=== PATIENT | male | born 1995 | race African-American/Black ===

== ENCOUNTER 2017-08-10 01:05 | Emergency (ER) | payer SELFPAY ==
--- NOTE | 2017-08-10 01:45 | PDOC ---
History of Present Illness - General Stated Complaint: ABD PAIN Time Seen by Provider: 08/10/17 01:44 History Source: Patient - History of Present Illness Initial Comments: 08/10/17 03:40 22 y.o. male with no PMH who presents to the ED today c/o acute onset of abdominal pain and associated emesis. Pain is sharp, 10/10 B/L LQ and does not radiate with no identifiable triggering or relieving factors. Patient endorse 5 -6 episodes of NBNB emesis. Patient denies any diarrhea/constipation and notes his last BM was earlier today and was normal. Patient's most recent PO intake was at 1 p.m. Patient denies chest pain, shortness of breath, fevers/chills. Past History - Past Medical History Allergies/Adverse Reactions: Allergies Allergy/AdvReac Type Severity Reaction Status Date / Time No Known Drug Allergies Allergy Verified 08/13/17 00:28 shellfish derived Allergy Verified 08/12/17 22:13 Home Medications: Ambulatory Orders Amox-Tr/K Cl [Augmentin - 500Mg Tablet] 1 tab PO BID #14 tab 08/13/17 Review of Systems - Review of Systems Constitutional: No: Chills, Fever HEENTM: No: Recent change in vision Respiratory: No: Shortness of Breath Cardiac (ROS): No: Chest Pain ABD/GI: Yes: Vomiting. No: Blood Streaked Bowels, Constipated, Diarrhea, Nausea , Tarry Stools : No: Burning, Dysuria *Physical Exam - Physical Exam General Appearance: Yes: Nourished, Appropriately Dressed Neck: positive: Trachea midline, Supple Respiratory/Chest: positive: Lungs Clear Cardiovascular: positive: S1, S2 Gastrointestinal/Abdominal: positive: Normal Bowel Sounds, Soft. negative: Protuberent, Guarding, Rebound, Hernia, Mass Musculoskeletal: negative: CVA Tenderness (R), CVA Tenderness (L) Extremity: positive: Normal Capillary Refill, Normal Inspection Integumentary: positive: Normal Color, Dry, Warm Neurologic: positive: Fully Oriented, Alert ED Treatment Course - LABORATORY CBC & Chemistry Diagram: 08/10/17 02:03 08/10/17 02:03 Medical Decision Making - Medical Decision Making 22 y.o. male with no reported PMH presents with LLQ abdominal pain and emesis. On PE patient is hemodynamically stable and abdominal exam shows mild LLQ tenderness. Afebrile, (-) leukocytosis, (-) Lactic Acidosis resolved with IV NS. Patient's pain improved with Toradol. Will discharge home with return precautions. *DC/Admit/Observation/Transfer Diagnosis at time of Disposition: Abdominal pain - Discharge Dispostion Disposition: HOME Condition at time of disposition: Good Admit: No - Referrals Referrals: Regla Yuan NP [Primary Care Provider] - - Patient Instructions Printed Discharge Instructions: DI for Viral Gastroenteritis -- Adult Additional Instructions: Please follow-up with your primary care doctor in 3-5 days. Return to the Emergency Department for any new/worsening/concerning symptoms. - Post Discharge Activity Forms/Work/School Notes: Back to Work
[2017-08-10] MEDS ORDERED: SODIUM CHLORIDE 0.9% 500 ML INFUS.BAG IV ONE (02:03)
[2017-08-10] MEDS ORDERED: FAMOTIDINE 20 MG/50 ML IVPB 20 MG/50 ML MG IVPB ONE ×2 (02:09→02:15)
[2017-08-10 02:19] LABS: BASO % 0.3 % (0-2.0); EOS % 0.1 % (0-4.5); HEMATOCRIT 46.3 % (35.4-49); HEMOGLOBIN 15.3 GM/dL (11.7-16.9); LYMPH % 7.6 % (8-40); MCHC 33.1 g/dl (32.0-35.9); MEAN CELL VOLUME 87.8 fl (80-96); MEAN PLT VOLUME 9.3 fl (7.5-11.1); MONO % 3.5 % (3.8-10.2); NEUT % 88.5 % (42.8-82.8); PLATELET COUNT 221 K/MM3 (134-434); RBC 5.27 M/mm3 (4.00-5.60); RDW 12.9 % (11.9-15.9); WHITE BLOOD COUNT 7.9 K/mm3 (4.0-10.0)
[2017-08-10 02:20] VITALS: BP 142/89; PULSE 75; TEMP 98.7; BMI 24.9
[2017-08-10 02:41] LABS: INR 1.19 (0.82-1.09); PROTHROMBIN TIME (PATIENT) 13.4 SEC (9.98-11.88)
[2017-08-10 02:50] LABS: ALBUMIN 4.5 g/dl (3.4-5.0); ALK PHOS 103 U/L (45-117); ANION GAP 9 (8-16); BILIRUBIN,TOTAL 0.6 mg/dL (0.2-1.0); BLOOD UREA NITROGEN 11 mg/dL (7-18); CALCIUM 9.8 mg/dL (8.5-10.1); CHLORIDE 100 mmol/L (98-107); CO2 28 mmol/L (21-32); GLUCOSE,RANDOM 125 mg/dL (74-106); LIPASE 186 U/L (73-393); POTASSIUM 4.8 mmol/L (3.5-5.1); SGOT/AST 30 U/L (15-37); SGPT/ALT 29 U/L (12-78); SODIUM 137 mmol/L (136-145); TOT PROT 8.4 g/dl (6.4-8.2)
[2017-08-10] MEDS ORDERED: SODIUM CHLORIDE 0.9% 1000 ML INFUS.BAG IV ONE (03:33)
[2017-08-10] MEDS ORDERED: KETOROLAC TROMETHAMINE 15 MG/ML VIAL IVPUSH ONE (03:35)
[2017-08-10] MEDS ORDERED: KETOROLAC TROMETHAMINE 15 MG/ML VIAL ONE (03:50)
[2017-08-10] MEDS ORDERED: ACETAMINOPHEN 1000 MG/100 ML VIAL (NON FORMULARY) IVPB ONE (04:57)
[2017-08-10] MEDS ORDERED: ACETAMINOPHEN INJECTION 100 ML IVPB ONE (04:59)
--- NOTE | 2017-08-10 05:00 | PDOC ---
Attending Attestation - Resident Resident Name: Cecilia Howe - ED Attending Attestation I have performed the following: I have examined & evaluated the patient, The case was reviewed & discussed with the resident, I agree w/resident's findings & plan - HPI HPI: 08/10/17 04:59 Pt comes with vomiting up his lox 4-5hrs after eating it. No fever and no chills. Pt has no other complaints. - Physicial Exam PE: 08/10/17 05:00 Agree with resident exam. - Medical Decision Making 08/10/17 05:00 IVF; pepcid; analgesics. Home with PMD follow up. 08/10/17 06:15 Repeat lactic acid is 1.5
[2017-08-10] MEDS ORDERED: morphine CARPU-JECT 2 MG/1 ML DISP.SYRIN IVPUSH ONE (05:32)
[2017-08-10] MEDS ORDERED: MORPHINE SULFATE 10 MG/1 ML *VIAL ONE (05:37)
== END 2017-08-10 06:06 | disposition home or self-care (01) ==
LOC: JER 01:05
DX: A08.4 Viral intestinal infection, unspecified (principal); B97.89 Other viral agents as the cause of diseases classified elsewhere
CPT/HCPCS: 36415; 80053; 83605; 83690; 85025; 85610; 86850; 86900; 86901; 99282-25

== ENCOUNTER 2017-08-12 21:36 | Day surgery (SDC) | payer SELFPAY ==
[2017-08-12 22:16] VITALS: BMI 19.0
--- NOTE | 2017-08-13 00:15 | PDOC ---
History of Present Illness - General History Source: Patient Exam Limitations: No Limitations - History of Present Illness Initial Comments: 08/13/17 01:06 The patient is a 22 year old male with no significant past medical history who returns to the ED for approximately 4 days of left lower quadrant pain. The patient presented to the ED complaining of LLQ pain with nausea and vomiting 2 days ago (08/10/2017). Bloodwork was obtained, no imaging. The patient was discharged home. He states that since then his pain has been getting worse and migrating downward. Pain became significantly worse 6 AM the morning of ED arrival. He also now complains of left testicular pain and fullness. Vomiting is now resolved. No dysuria or hematuria. <Kristan Givens - Last Filed: 08/13/17 01:41> <Parth Ibrahim - Last Filed: 08/13/17 02:00> - General Chief Complaint: Pain Stated Complaint: PAIN Time Seen by Provider: 08/13/17 00:10 Past History <Kristan Givens - Last Filed: 08/13/17 01:41> - Past Medical History COPD: No - Suicide/Smoking/Psychosocial Hx Smoking History: Never smoked Have you smoked in the past 12 months: No Information on smoking cessation initiated: No Hx Alcohol Use: No Drug/Substance Use Hx: Yes (Marijuana) Substance Use Type: Marijuana <Parth Ibrahim - Last Filed: 08/13/17 02:00> - Past Medical History Allergies/Adverse Reactions: Allergies Allergy/AdvReac Type Severity Reaction Status Date / Time No Known Drug Allergies Allergy Verified 08/13/17 00:28 shellfish derived Allergy Verified 08/12/17 22:13 Home Medications: Ambulatory Orders NK [No Known Home Medication] 08/10/17 Review of Systems - Review of Systems Able to Perform ROS?: Yes Comments:: 08/13/17 01:12 CONSTITUTIONAL: No fever, no chills, no fatigue EYES: No visual changes ENT: No ear pain, no sore throat CARDIOVASCULAR: No chest pain, no palpitations RESPIRATORY: No cough, no SOB GI: +LLQ pain. +Nausea, vomiting (now resolved). No constipation, no diarrhea GENITOURINARY: +Left testicular pain, swelling. No dysuria, no frequency, no hematuria MUSCULOSKELETAL: No backpain, no joint pain, no myalgias SKIN: No rash NEURO: No headache <Kristan Givens - Last Filed: 08/13/17 01:41> *Physical Exam - Vital Signs Last Vital Signs Temp Pulse Resp BP Pulse Ox 98.9 F 88 18 104/95 100 08/12/17 22:14 08/12/17 22:14 08/12/17 22:14 08/12/17 22:14 08/12/17 22:14 - Physical Exam Comments: 08/13/17 01:13 CONSTITUTIONAL: Well-appearing; well-nourished; in no apparent distress HEAD: Normocephalic; atraumatic EYES: PERRL; EOM intact ENMT: External appears normal; normal oropharynx NECK: Supple; non-tender; no cervical lymphadenopathy CARD: Normal S1, S2; no murmurs, rubs, or gallops RESP: Normal chest excursion with respiration; breath sounds clear and equal bilaterally; no wheezes, rhonchi, or rales ABD: Mild left lower quadrant ttp; Soft, non-distended; no palpable organomegaly , no palpable hernias EXT: Normal ROM in all four extremities; non-tender to palpation; distal pulses intact SKIN: Warm, dry, no rash NEURO: No focal neurological deficiencies. : L testicular is hard to touch, tender, and in horizontal line. <Kristan Givens - Last Filed: 08/13/17 01:41> - Vital Signs Last Vital Signs Temp Pulse Resp BP Pulse Ox 98.9 F 88 18 104/95 100 08/12/17 22:14 08/12/17 22:14 08/12/17 22:14 08/12/17 22:14 08/12/17 22:14 <Parth Ibrahim - Last Filed: 08/13/17 02:00> ED Treatment Course - LABORATORY CBC & Chemistry Diagram: 08/13/17 00:48 08/13/17 00:48 - RADIOLOGY Radiograph Interpretation: 08/13/17 01:42 US of scrotum, preliminary reading by [facility] Findings communicated to me at 0130. EXAM: ULTRASOUND SCROTUM and DUPLEX SCROTAL CONTENTS (INCLUDES ARTERIAL AND VENOUS IMAGING) Absent blood flow to left testis, which has heterogeneous echotexture and is slightly enlarged compared to right (4.6 x 3.7 x 3.1 cm, compared to 4.6 x 2.9 x 2.6 cm on right) . Left epididymal head is also enlarged compared to right epididymis. Findings compatible with left testicular torsion. Normal right testis. Scrotal skin thickening. THIS DOCUMENT HAS BEEN ELECTRONICALLY SIGNED Gala Moeller M.D. <Kristan Givens - Last Filed: 08/13/17 01:41> - LABORATORY CBC & Chemistry Diagram: 08/13/17 00:48 08/13/17 00:48 <Parth Ibrahim - Last Filed: 08/13/17 02:00> Medical Decision Making - Critical Care Time Total Critical Care Time (minutes): 30 Critical Care Statement: The care of this patient involved high complexity decision making to prevent further life threatening deterioration of the patient 's condition and/or to evaluate & treat vital organ system(s) failure or risk of failure. - Medical Decision Making 08/13/17 01:16 Pt sent for stat scrotal US. Awaiting preliminary interpretation from [facility]. Case discussed with Dr. Guerrero of Urology at 0110 who is coming to evaluate the patient and take him to the OR. <Kristan Givens - Last Filed: 08/13/17 01:41> - Medical Decision Making 08/13/17 01:29 Patient is a 22-year-old male who presented to the ER with atraumatic llq and left testicular pain. 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 in the ED, pts left testicle is hard to palpation, tender to touch, in no abnormal lie. Testicular ultrasound shows no evidence of blood flow to the ER left testicle with a heterogeneous appearance. Urology has been consult it and the patient will be promptly taken to the operating room. We 'll keep nothing by mouth. We'll administer pain meds. <Parth Ibrahim - Last Filed: 08/13/17 02:00> *DC/Admit/Observation/Transfer - Attestations Scribe Attestion: 08/13/17 01:17 Documentation prepared by Kristan Givens, acting as medical equipment repair technician for Parth Ibrahim MD. <Kristan Givens - Last Filed: 08/13/17 01:41> - Discharge Dispostion Admit: Yes - Attestations Physician Attestion: 08/13/17 01:29 The documentation was prepared by the scribe under my direct supervision. I have reviewed the documentation which correctly represents the findings, medical decision-making and critical action taken by me. <Parth Ibrahim - Last Filed: 08/13/17 02:00> Diagnosis at time of Disposition: Testicular torsion - Discharge Dispostion Condition at time of disposition: Fair
[2017-08-13 00:56] LABS: BASO % 0.7 % (0-2.0); EOS % 1.5 % (0-4.5); HEMATOCRIT 45.2 % (35.4-49); HEMOGLOBIN 15.1 GM/dL (11.7-16.9); LYMPH % 22.6 % (8-40); MCH 29.6 pg (25.7-33.7); MCHC 33.4 g/dl (32.0-35.9); MEAN CELL VOLUME 88.5 fl (80-96); MEAN PLT VOLUME 9.1 fl (7.5-11.1); MONO % 15.9 % (3.8-10.2); NEUT % 59.3 % (42.8-82.8); PLATELET COUNT 190 K/MM3 (134-434); RBC 5.11 M/mm3 (4.00-5.60); RDW 13.3 % (11.9-15.9); WHITE BLOOD COUNT 9.9 K/mm3 (4.0-10.0)
[2017-08-13 00:57] LABS: URINE APPEARANCE CLEAR; URINE BILIRUBIN NEGATIVE (NEGATIVE); URINE BLOOD NEGATIVE (NEGATIVE); URINE COLOR YELLOW; URINE GLUCOSE (UA) NEGATIVE (NEGATIVE); URINE KETONE NEGATIVE (NEGATIVE); URINE LEUK ESTERASE NEGATIVE (NEGATIVE); URINE NITRITE NEGATIVE (NEGATIVE); URINE PROTEIN NEGATIVE (NEGATIVE)
[2017-08-13 01:10] LABS: INR 1.22 (0.82-1.09); PROTHROMBIN TIME (PATIENT) 13.8 SEC (9.98-11.88)
[2017-08-13] MEDS ORDERED: HYDROmorphone HCL CARPU-JECT 1 MG/1 ML DISP.SYRIN IVPB ONE (01:14)
[2017-08-13 01:30] LABS: ALK PHOS 96 U/L (45-117); ANION GAP 8 (8-16); BILIRUBIN,TOTAL 0.7 mg/dL (0.2-1.0); BLOOD UREA NITROGEN 17 mg/dL (7-18); CALCIUM 9.4 mg/dL (8.5-10.1); CHLORIDE 101 mmol/L (98-107); CO2 30 mmol/L (21-32); GLUCOSE,RANDOM 97 mg/dL (74-106); POTASSIUM 4.4 mmol/L (3.5-5.1); SGOT/AST 33 U/L (15-37); SGPT/ALT 23 U/L (12-78); SODIUM 139 mmol/L (136-145); TOT PROT 7.7 g/dl (6.4-8.2)
[2017-08-13] MEDS ORDERED: HYDROmorphone HCL CARPU-JECT 1 MG/1 ML DISP.SYRIN ONE (01:51)
[2017-08-13] MEDS ORDERED: PROPOFOL 20 ML ONE ×2 (06:20)
[2017-08-13] MEDS ORDERED: BUPIVACAINE HCL/PF 0.5% (5MG/ML) 10 ML VIAL ONE (06:29)
--- NOTE | 2017-08-13 06:34 | CON.GU ---
Consult Consult Specialty:: urology - History of Present Illness Chief Complaint: left testicular torsion History of Present Illness: Patient with intermittent left lower abdominal pain for a few days. Pain intensified at 6:00 am on 08/12. Patient presented more than 12 hours after initial pain in left testis. Patient denies fever, chills, or scrotal trauma. - History Source History Provided By: Patient Limitations to Obtaining History: No Limitations - Alcohol/Substance Use Hx Alcohol Use: No - Smoking History Smoking history: Never smoked Have you smoked in the past 12 months: No Home Medications - Allergies Allergies/Adverse Reactions: Allergies Allergy/AdvReac Type Severity Reaction Status Date / Time No Known Drug Allergies Allergy Verified 08/13/17 00:28 shellfish derived Allergy Verified 08/12/17 22:13 - Home Medications Home Medications: Ambulatory Orders NK [No Known Home Medication] 08/10/17 Physical Exam- Vital Signs: Vital Signs Temperature 98.9 F 08/12/17 22:14 Pulse Rate 82 08/13/17 04:09 Respiratory Rate 18 08/13/17 04:09 Blood Pressure 108/90 08/13/17 04:09 O2 Sat by Pulse Oximetry (%) 100 08/13/17 04:09 Constitutional: Yes: Well Nourished, No Distress, Calm Eyes: Yes: WNL, Conjunctiva Clear, EOM Intact HENT: Yes: WNL, Atraumatic, Normocephalic Neck: Yes: WNL, Supple, Trachea Midline Cardiovascular: Yes: WNL, Regular Rate and Rhythm Respiratory: Yes: WNL, Regular Gastrointestinal: Yes: WNL, Normal Bowel Sounds, Soft Renal/: Yes: WNL Kidneys: Yes: WNL Pelvis: Yes: WNL Testicles: Yes: Other (left testicular induration and swelling/absent cremasteric reflex) Penis: Yes: WNL Prostate Exam: Yes: Deferred Labs: CBC, BMP 08/13/17 00:48 08/13/17 00:48 Assessment/Plan impression left testicular torsion confirmed by doppler plan left scrotal exploration and possible right orchidopexy procedure to be done emergently discussed with patient all risks and benefits including possible left orchiectomy spent 25 minutes
[2017-08-13] MEDS ORDERED: ceFAZolin SODIUM 1 GM VIAL ONE (06:37)
[2017-08-13] MEDS ORDERED: DEXAMETHASONE SOD PHOSPHATE 4 MG/1 ML VIAL ONE (06:37)
[2017-08-13] MEDS ORDERED: ceFAZolin SODIUM 1 GM VIAL IVPB ONE (06:38)
[2017-08-13] MEDS ORDERED: SODIUM CHLORIDE 0.9% P/F 10 ML VIAL IJ ONE (06:50)
[2017-08-13] MEDS ORDERED: BUPIVACAINE HCL/PF 0.5% (5MG/ML) 10 ML VIAL IJ ONE (06:55)
--- NOTE | 2017-08-13 07:20 | OP ---
Operative Note - Note: Operative Date: 08/13/17 Pre-Operative Diagnosis: left testicular torsion Operation: left orchiectomy and right orchidopexy Findings: left testis detorted without imrovement of testes; left testis not viable Post-Operative Diagnosis: Same as Pre-op Surgeon: Jayy Guerrero Anesthesia: General Specimens Removed: left testis Operative Report Dictated: Yes
[2017-08-13] MEDS ORDERED: oxyCODONE HCL 5 MG TABLET PO PRN (07:32)
[2017-08-13] MEDS ORDERED: LACTATED RINGERS SOLUTION 1,000 ML IV SCH (07:45)
--- NOTE | 2017-08-13 08:43 | OP ---
DATE OF OPERATION: 08/13/2017 PREOPERATIVE DIAGNOSIS: Left testicular torsion. POSTOPERATIVE DIAGNOSIS: Left testicular torsion. PROCEDURE: Left orchiectomy and right orchidopexy. ATTENDING: Nicholas Almeida MD ANESTHESIA: General. INDICATIONS FOR PROCEDURE: The patient was evaluated and noted to have a left testicular torsion with absence of the left cremasteric reflex. Ultrasound had shown that there is no blood flow to the testis. The patient presented more than 12 hours after initial onset of severe pain. The patient was advised that there is a high risk of an orchiectomy at the time of exploration. The patient accepts the risks and benefits of the procedure. DESCRIPTION OF PROCEDURE: The patient was brought in the operating room, placed in supine position on the operating room table. General anesthesia is administered. One gram of Ancef is administered. Patient is prepped and draped in the usual sterile manner. A horizontal incision in the mid-scrotum on the left side was made. The left testis was brought out of the scrotal sac. A torsion of the spermatic cord was noted. The testicle was untwisted. Blood flow returned to a very small portion of the testis. The testis was dusky and dark blue. It did not appear to be a viable testis after 10-15 minutes of observation. It was decided to remove the testis. Clamps were placed on the spermatic cord, heavy was taken, and the testis was removed. A suture ligature using 0 Vicryl was utilized for the spermatic stump. A second free tie was placed at the stump as well. A 2-layer closure using 3-0 Vicryl and 3-0 chromic was made. Interrupted stitches were utilized. Prior to closure, the wound was irrigated. There were no complications noted. No excessive bleeding was seen on that side. At this point, the right testis was examined. It was decided to perform an orchidopexy. A right scrotal incision was made in the mid-scrotum. Testis was observed and noted to be healthy. Three Prolene stitches were placed in the left aspect, right aspect, and inferior aspect of the testis. No bleeding or complications were noted. The wound was irrigated. A 2-layer closure, as on the other side, was performed. No complications were noted. The patient tolerated the procedure very well. The disposition of the patient was to recovery room. Patient will be observed and most likely discharged later today. Patient will be sent home on Augmentin. NICHOLAS ALMEIDA M.D. /[id number]
[2017-08-13 08:46] VITALS: TEMP 98.8
[2017-08-13 09:59] VITALS: BP 137/70; PULSE 92
--- NOTE | 2017-08-14 17:21 | PATH ---
Surgical Pathology Report Patient Name: STACEY CLINTON [place]. Rec. #: [id number] /Age/Gender: 1995 (Age: 22) / M Account: [id number] Location: AMBULATORY SURG Taken: 08/13/2017 Received: 08/13/2017 Reported: 08/14/2017 Physicians: Jayy Guerrero Specimen(s) Received LEFT TESTICLE Clinical History Torsion of testis Final Diagnosis TESTIS, LEFT, ORCHIECTOMY: TESTICULAR TISSUE WITH INTERSTITIAL HEMORRHAGE, INFARCTION AND COAGULATIVE NECROSIS. Electronically Signed Helen Welch M.D. Gross Description Received in formalin labeled "left testicle," is a 58 g orchiectomy specimen, including a 4.7 x 3.5 x 2.5 cm testis, a 4.5 x 2.5 x 1.5 cm epididymis and a 1 cm in length attached portion of spermatic cord. The outer surface is red-brown and intact. Sectioning reveals diffusely hemorrhagic parenchyma of the testis and epididymis. No masses are identified. Trackman sections are submitted in 5 cassettes as follows: 1-spermatic cord margin of resection; 6-6-kefwfmnpidanea testicular parenchyma with tunica albuginea and tunica vaginalis; 4-epididymis; 5-testicular parenchyma with rete testis. /08/13/201708/13/2017
== END 2017-08-13 09:50 | disposition home or self-care (01) ==
LOC: JER 21:36 → JERBED 08-13 02:00 → UNDOADMOB 08-13 02:00 → JASUSAT 08-13 02:00 → JERBED 08-13 02:21 → UNDOADMOB 08-13 02:21 → JASUSAT 08-13 09:50
PROVIDERS: ATTEND Urology
CPT/HCPCS: 36415; 76870-TC; 80053; 81003; 85025; 85610; 86850; 86900; 86901; 87086; 87491; 87591; 88307-TC; 99284-25

== ENCOUNTER 2024-04-20 14:31 | Emergency (ER) | payer BC, OTHER ==
[2024-04-20 14:45] VITALS: BP 120/76; PULSE 72; RESP 20; TEMP 98.1; BMI 21.6
[2024-04-20] MEDS ORDERED: IBUPROFEN 600 MG TABLET (FP) PO ONE (15:41)
[2024-04-20] MEDS: IBUPROFEN 600 MG TABLET (FP) PO ONE (15:43)
[2024-04-20 17:59] LABS: HIV INTERPRETATION NEGATIVE (NEGATIVE)
== END 2024-04-20 15:52 | disposition home or self-care (01) ==
LOC: JER 14:31
DX: R09.81 Nasal congestion (principal); R05.9 Cough, unspecified; R53.81 Other malaise; J06.9 Acute upper respiratory infection, unspecified; Z20.822 Contact with and (suspected) exposure to COVID-19
CPT/HCPCS: 0241U-QW; 36415; 86803; 87389; 99283-25